=== PATIENT | female | born 1995 | race Caucasian/White ===

== ENCOUNTER 2017-08-19 18:50 | Emergency (ER) | payer MEDICAID ==
[~2017-08-19] VITALS: Ht 152.4 cm; Wt 67.4 kg
[~2017-08-19 18:50] MED LIST: DOCU-131 PO; IBUP-1222 PO; OXYC-302 PO
[2017-08-19 19:23] LABS: BASOPHILS # (AUTO) 0.05 x10^3/uL (0-0.1); BASOPHILS % (AUTO) 0 % (0-1); EOSINOPHILS # (AUTO) 0.68 x10^3/uL (0-0.4); EOSINOPHILS % (AUTO) 4 % (1-7); LYMPHOCYTES # (AUTO) 3.12 x10^3/uL (1-3.4); LYMPHOCYTES % (AUTO) 18 % (22-44); MD NO; MEAN CORPUSCULAR HGB CONC 34.1 g/dL (32.4-35.8); MEAN CORPUSCULAR VOLUME 93.8 fL (80-100); MEAN PLATELET VOLUME 7.4 fL (7.4-10.4); MONOCYTES # (AUTO) 1.21 x10^3/uL (0.2-0.8); MONOCYTES % (AUTO) 7 % (2-9); NEUTROPHILS # (AUTO) 12.39 x10^3/uL (1.8-6.8); NEUTROPHILS % (AUTO) 71 % (42-75); PLATELET COUNT 220 x10^3/uL (130-400); RED BLOOD COUNT 4.93 x10^6/uL (3.82-5.3); RED CELL DISTRIBUTION WIDTH 13.8 % (9.6-15.2)
[2017-08-19 19:31] LABS: MICROSCOPIC NOT IND
[2017-08-19 19:34] LABS: CULTURE INDICATED? NO
[2017-08-19 19:36] LABS: ALANINE AMINOTRANSFERASE 19 U/L (12-78); ALBUMIN 4.3 g/dL (3.4-5.0); ANION GAP 9 mmol/L (5-15); CALCIUM 8.9 mg/dL (8.5-10.1); CHLORIDE 105 mmol/L (98-107); CREATININE 0.95 mg/dL (0.55-1.02)
[2017-08-19 19:40] LABS: ALKALINE PHOSPHATASE 113 U/L (45-117); BILIRUBIN,TOTAL 0.3 mg/dL (0.2-1.0); TOTAL PROTEIN 8.2 g/dL (6.4-8.2)
[2017-08-19] MEDS ORDERED: SODIUM CHLORIDE FLUSH 10ML SYR IVF ONE (20:30)
[2017-08-19] MEDS ORDERED: SODIUM CHLORIDE 0.9% 1,000ML IVBOLUS ONE (20:30)
[2017-08-19 21:04] VITALS: BP 135/64
[2017-08-19 21:33] LABS: CLUE CELLS NONE SEEN (NONE SEEN)
[2017-08-19 21:34] LABS: WET PREP WBCS FEW (FEW)
[2017-08-19] MEDS ORDERED: AZITHROMYCIN 500 MG TABLET PO ONE (22:00)
[2017-08-19] MEDS ORDERED: CEFTRIAXONE 250 MG IM ONE (22:00)
[2017-08-19] MEDS ORDERED: CEFTRIAXONE 250 MG ONE (22:42)
[2017-08-19] MEDS ORDERED: AZITHROMYCIN 250 MG TABLET ONE (22:42)
== END 2017-08-19 23:21 | disposition home or self-care (01) ==
LOC: ED 21:11
DX: N83.202 Unspecified ovarian cyst, left side (principal); D72.829 Elevated white blood cell count, unspecified
CPT/HCPCS: 36415; 76830; 80053; 81003; 84703; 85025; 87210; 87491; 87591; 87808; 96360; 96361; 99285; J7030

== ENCOUNTER 2018-06-08 13:24 | Emergency (ER) | payer SELFPAY ==
[~2018-06-08] VITALS: Ht 152.4 cm; Wt 62.1 kg
[2018-06-08] MEDS ORDERED: HYDROmorphone 2 MG/ML, 1ML ONE ×2 (13:47→14:45)
[2018-06-08] MEDS ORDERED: HYDROmorphone 1 MG/ML, 1ML IM ONE (14:00)
[2018-06-08] MEDS ORDERED: NEO/POLY/HC EAR SUSP 10ML LEFT EAR ONE (14:00)
[2018-06-08] MEDS ORDERED: L.E.T SOLUTION TP ONE ×2 (14:31→15:00)
[2018-06-08] MEDS ORDERED: ONDANSETRON 2MG/ML, 2ML ONE (14:45)
[2018-06-08] MEDS ORDERED: PREN-3 PO (14:58)
[2018-06-08] MEDS ORDERED: HYDROmorphone 2 MG/ML, 1ML IVPush PRN (15:00)
[2018-06-08] MEDS ORDERED: ONDANSETRON 2MG/ML, 2ML IVPush ONE (15:00)
[2018-06-08] MEDS ORDERED: SODIUM CHLORIDE FLUSH 10ML SYR IVF ONE (15:00)
[2018-06-08 15:10] LABS: BASOPHILS % (AUTO) 0 % (0-1); EOSINOPHILS # (AUTO) 0.06 x10^3/uL (0-0.4); EOSINOPHILS % (AUTO) 0 % (1-7); LYMPHOCYTES % (AUTO) 11 % (22-44); MD NO; MEAN CORPUSCULAR HEMOGLOBIN 30.6 pg (27.0-34.8); MEAN CORPUSCULAR HGB CONC 33.3 g/dL (32.4-35.8); MEAN CORPUSCULAR VOLUME 91.8 fL (80-100); MEAN PLATELET VOLUME 7.8 fL (7.4-10.4); MONOCYTES # (AUTO) 0.61 x10^3/uL (0.2-0.8); MONOCYTES % (AUTO) 4 % (2-9); NEUTROPHILS # (AUTO) 11.75 x10^3/uL (1.8-6.8); NEUTROPHILS % (AUTO) 84 % (42-75); PLATELET COUNT 187 x10^3/uL (130-400); RED BLOOD COUNT 4.83 x10^6/uL (3.82-5.3); RED CELL DISTRIBUTION WIDTH 14.2 % (9.6-15.2)
[2018-06-08 15:15] LABS: ALBUMIN 3.7 g/dL (3.4-5.0); ANION GAP 5 mmol/L (5-15); CALCIUM 8.5 mg/dL (8.5-10.1); CHLORIDE 106 mmol/L (98-107); CREATININE 0.71 mg/dL (0.55-1.02)
[2018-06-08 15:44] VITALS: BP 130/83
--- NOTE | 2018-06-08 17:46 | NUR ---
Patient/Caregiver given discharge instructions and they have confirmed that they understand the instructions. Patient ambulatory with steady gait.
== END 2018-06-08 17:47 | disposition home or self-care (01) ==
LOC: ED 15:09
DX: H66.002 Acute suppurative otitis media without spontaneous rupture of ear drum, left ear (principal); F17.200 Nicotine dependence, unspecified, uncomplicated
CPT/HCPCS: 36415; 70480; 80048; 82040; 85025; 96372; 96374; 96375; 99284; J1170; J2405; J7512

== ENCOUNTER 2018-07-17 12:46 | Emergency (ER) | payer SELFPAY ==
[~2018-07-17] VITALS: Ht 152.4 cm; Wt 59.0 kg
[~2018-07-17 12:46] MED LIST changes: +PREN-3 PO
[2018-07-17] MEDS ORDERED: PHENAZOPYRIDINE 200 MG TABLET PO ONE (14:00)
[2018-07-17] MEDS ORDERED: DEXAMETHASONE 4 MG TABLET ONE (14:00)
[2018-07-17] MEDS ORDERED: PHENAZOPYRIDINE 200 MG TABLET ONE (14:00)
[2018-07-17] MEDS ORDERED: DEXAMETHASONE 4 MG TABLET PO ONE (14:00)
[2018-07-17 14:21] LABS: HCG UR SG 1.028 (1.003-1.030)
[2018-07-17 14:27] LABS: CULTURE INDICATED? YES; MICROSCOPIC INDICATED
[2018-07-17 15:10] VITALS: BP 110/80
== END 2018-07-17 15:11 | disposition home or self-care (01) ==
LOC: ED 14:09
DX: J04.0 Acute laryngitis (principal); B34.9 Viral infection, unspecified; N30.01 Acute cystitis with hematuria; F17.210 Nicotine dependence, cigarettes, uncomplicated
CPT/HCPCS: 71046; 81001; 81025; 87077; 87081; 87086; 87186; 87880; 99284